=== PATIENT | male | born 1975 | race African-American/Black ===

== ENCOUNTER 2021-03-30 16:35 | Emergency (ER) | payer OTHER ==
[2021-03-30 18:45] LABS: BASOPHIL 0.5 % (0-2); EOSINOPHIL 3.4 % (0-5); HCT 45.4 % (42.0-52.0); HGB 14.9 g/dl (13.2-18.0); LYMPHOCYTE 20.6 % (15-48); MCH 29.5 pg (25.0-31.0); MCHC 32.8 g/dL (32.0-36.0); MCV 89.9 fL (78.0-100.0); MONOCYTE 6.5 % (0-12); MPV 10.5 fL (6.0-9.5); NEUTROPHIL 68.7 % (41-80); NRBC 0; PLT 240 K/uL (150-400); RBC 5.05 M/uL (4.70-6.00); RDW 12.8 % (11.5-14.0); WBC 9.3 K/uL (4.0-10.5)
[2021-03-30 19:08] LABS: ALBUMIN 3.9 g/dL (3.4-5.0); BILIRUBIN - TOTAL 0.3 mg/dL (0.2-1.0); BUN/CREAT RATIO (CALC) 11.3 RATIO; CREATININE 0.71 mg/dL (0.67-1.17); GLOBULIN (CALCULATION) 4.2 g/dL; POTASSIUM 4.5 mmol/L (3.5-5.1); TOTAL PROTEIN 8.1 g/dL (6.4-8.2)
[2021-03-31] MEDS ORDERED: ANTIVERT25 MG PO (00:46)
[2021-03-31] MEDS ORDERED: ONDANSETRON ODT4 MG PO (00:46)
== END 2021-03-30 22:25 | disposition home or self-care (01) ==
LOC: FER 16:35
PROVIDERS: Emergency Medicine
DX: R07.89 Other chest pain (principal); F41.9 Anxiety disorder, unspecified; I10 Essential (primary) hypertension; E11.9 Type 2 diabetes mellitus without complications; Z79.84 Long term (current) use of oral hypoglycemic drugs; Z79.4 Long term (current) use of insulin
CPT/HCPCS: 36415; 71045; 80053; 84484; 85025; 93005; J2060; J2270; J2405

== ENCOUNTER 2021-03-30 23:29 | Emergency (ER) | payer OTHER ==
[2021-03-31] MEDS ORDERED: ONDANSETRON ODT4 MG PO (00:46)
[2021-03-31] MEDS ORDERED: ANTIVERT25 MG PO (00:46)
== END 2021-03-31 01:48 | disposition home or self-care (01) ==
LOC: FER 23:29
DX: R42 Dizziness and giddiness (principal); R11.0 Nausea; I10 Essential (primary) hypertension; E11.9 Type 2 diabetes mellitus without complications
CPT/HCPCS: 93005